=== PATIENT | male | born 1970 | race American Indian/Alaskan Native ===

== ENCOUNTER 2022-07-20 10:01 | Emergency (ER) | payer SELFPAY ==
[2022-07-20 14:46] VITALS: BP 147/94
== END 2022-07-20 15:55 | disposition left against medical advice (07) ==
LOC: ED 10:01
DX: Z00.00 Encounter for general adult medical examination without abnormal findings (principal); Z53.21 Procedure and treatment not carried out due to patient leaving prior to being seen by health care provider